=== PATIENT | female | born 1995 ===

== ENCOUNTER 2024-10-02 14:53 | Outpatient (CLI) | payer OTHER, SELFPAY ==
[2024-10-02 16:16] LABS: Basophils Percent Auto 0.4 % (0.2-1.2); Eosinophils Percent Auto 0.6 % (0-4.4); Hematocrit 34.2 % (37.0-47.0); Hemoglobin 11.1 g/dL (12.0-15.0); Immature Granulocyte Absolute 0.02 K/mm3 (0.00-0.031); Immature Granulocyte Percent A 0.3 % (0-0.5); Lymphocytes Absolute Auto 1.97 K/mm3 (0.9-3.2); Lymphocytes Percent Auto 29.2 % (18.3-44.2); Mean Corpuscular HGB Conc 32.5 g/dl (32-36); Mean Corpuscular Hemoglobin 28.7 pg (26-34); Mean Corpuscular Volume 88.4 fl (80-100); Mean Platelet Volume 9.3 fl (7.4-10.4); Monocytes Absolute Auto 0.7 K/mm3 (0.1-0.6); Monocytes Percent Auto 10.1 % (2.6-8.5); Neutrophils Percent Auto 59.4 % (45.5-73.1); Platelet Count Result 373 k/mm3 (150-375); Red Blood Count 3.87 M/mm3 (4.2-5.4); Red Cell Distribution Width 12.4 % (11.5-14.5); White Blood Count 6.7 K/mm3 (4.5-10.0)
[2024-10-02 16:36] LABS: Alanine Aminotransferase 17 U/L (6-35); Albumin Level 4.5 g/dL (3.5-5.1); Alkaline Phosphatase 47 U/L (38-126); Anion Gap 7 mmol/L (4-12); Aspartate Amino Transferase 31 U/L (14-36); Bilirubin,Total 0.4 mg/dL (0.2-1.3); Blood Urea Nitrogen 8 mg/dL (7-17); CRP < 0.5 mg/dL (<1.0); Calcium 9.3 mg/dL (8.4-10.2); Carbon Dioxide 29 mmol/L (22-30); Chloride 101 mmol/L (98-107); Estimated Glomerular Filt Rate > 60; Glucose 139 mg/dL (65-110); Potassium 3.6 mmol/L (3.4-5.0); Sodium 137 mmol/L (137-145)
[2024-10-02 17:01] LABS: Erythrocyte Sedimentation Rate 27 mm/hr (0-20)
[2024-10-02 17:03] LABS: Thyroid Stimulating Hormone Reflex 0.022 uIU/mL (0.465-4.68)
[2024-10-02 17:31] LABS: Free T4 Free Thyroxine Reflex 2.22 ng/dL (0.78-2.19)
[2024-10-03 09:20] LABS: ANA Cascade Screen NEGATIVE (NEGATIVE)
== END 2024-10-02 14:54 | disposition home or self-care (01) ==
LOC: ANHGOSHLAB 15:00
PROVIDERS: Visit Provider Nurse Practitioner
DX: G62.9 Polyneuropathy, unspecified (principal)
CPT/HCPCS: 36415; 80053; 82607; 84439; 84443; 85025; 85652; 86038; 86140; 86225; 86235; 86364